=== PATIENT | male | born 1960 | race Caucasian/White ===

== ENCOUNTER 2022-04-04 10:07 | Emergency (ER) | payer OTHER ==
[~2022-04-04] VITALS: Ht 177.8 cm; Wt 83.9 kg
[2022-04-04] MEDS ORDERED: TETANUS/DIPHTHERIA TOX ADULT 0.5 ML SYR IM ONE (10:30)
[2022-04-04] MEDS ORDERED: CEPHALEXIN500 MG PO (13:48)
[2022-04-04] MEDS ORDERED: BACTRIM DS TAB1 EACH PO (13:48)
== END 2022-04-04 13:51 | disposition home or self-care (01) ==
LOC: ER 10:17
DX: M79.672 Pain in left foot (principal); L03.116 Cellulitis of left lower limb; W56.81XA Bitten by other nonvenomous marine animals, initial encounter; Y92.832 Beach as the place of occurrence of the external cause; I10 Essential (primary) hypertension; E78.5 Hyperlipidemia, unspecified
CPT/HCPCS: 99283